=== PATIENT | male | born 1980 | race American Indian/Alaskan Native ===

== ENCOUNTER 2019-07-18 11:35 | Emergency (ER) | payer BC ==
[2019-07-18 11:46] VITALS: BP 145/100
--- NOTE | 2019-07-18 12:00 | Emergency Department Report ---
Chief Complaint: High BP Stated Complaint: B/P CHECK Time Seen by Provider: 07/18/19 11:54 - HPI History of Present Illness: 39 y o [place] no prior medical hx presenst to Ed stating he wanted to come check his blood pressure because he la nena=t a little funny earlier ststes that he had been out drinking alcohol with his friends last night and woke up this morning feeling a little different so he wanted to come in the ER to check his BP He denies any symptoms right now,he denies cp, sob,harper,blurry vision or any pther - ROS Review of Systems: As noted in HPI - Exam Vital Signs: Vital Signs 07/18/19 11:42 Temperature 98.2 F Pulse Rate 110 H Respiratory 20 Rate Blood Pressure 145/100 O2 Sat by Pulse 98 Oximetry Physical Exam: Gen: aao x 3 no acute distress Chest: non tender, RRR MSE screening note: Focused history and physical exam performed. Due to findings the following was ordered: ED Medical Decision Making - Medical Decision Making asymptomatic elevated BP discussed [facility] VSS , no acute distress Finger stick: 73 in traige ED Disposition for MSE Clinical Impression: Elevated BP without diagnosis of hypertension Disposition: Z- MED SCREENING EXAM-LEFT Is pt being admited?: No Does the pt Need Aspirin: No Condition: Stable Instructions: Low Sodium Diet (ED), Hypertension (ED) Additional Instructions: follow up with [facility] if you have any symptoms such as chest pain, blurry vison, headache please return to the eD imediately Referrals: [facility] [Outside] - 3-5 Days [facility] [Outside] - 3-5 Days [facility] [Outside] - 3-5 Days [facility] [Outside] - 3-5 Days Forms: Work/School Release Form(ED) Time of Disposition: 11:57
== END 2019-07-18 12:00 | disposition left against medical advice (07) ==
LOC: ED 11:35
DX: R03.0 Elevated blood-pressure reading, without diagnosis of hypertension (principal)
CPT/HCPCS: 82962